=== PATIENT | female | born 1955 | race Caucasian/White ===

== ENCOUNTER 2023-10-01 17:59 | Inpatient (IN) | payer MEDICARE ==
[~2023-10-01] VITALS: Ht 157.5 cm; Wt 64.9 kg
[2023-10-01] MEDS: SODIUM CHLORIDE 0.9% 1,000 ML IV ONE (18:34)
[2023-10-01 18:53] LABS: BASOPHILS % 0.5 % (0.0-2.0); EOSINOPHILS % 0.1 % (0.0-5.0); HEMATOCRIT. 42.5 % (36.0-48.0); HEMOGLOBIN. 14.4 g/dL (12.0-16.0); LYMPHOCYTES % 11.2 % (20.0-50.0); MEAN CORPUSCULAR HEMOGLOBIN 30.3 pg (28.0-32.0); MEAN CORPUSCULAR HGB CONC 33.8 g/dL (31.0-37.0); MEAN CORPUSCULAR VOLUME 89.6 fL (81.0-99.0); MEAN PLATELET VOLUME 10.8 fl (7.4-10.4); MONOCYTES % 6.3 % (2.0-8.0); NEUTROPHILS % 81.9 % (40.0-76.0); PLATELET 197 x1000/uL (130-400); RED BLOOD CELL COUNT 4.74 mill/uL (4.2-5.4); RED CELL DISTRIBUTION WIDTH 14.1 % (11.6-14.6); WHITE BLOOD COUNT 10.2 x1000/uL (4.5-11.0)
[2023-10-01 19:05] LABS: PARTIAL THROMBOPLASTIN TIME 25.8 sec (23.4-31.0); PROTHROMBIN TIME 11.1 sec (9.6-11.0)
[2023-10-01 19:12] LABS: ALANINE AMINOTRANSFERASE 13 IU/L (10-49); ALBUMIN 4.9 g/dL (3.2-4.8); ASPARTATE AMINOTRANSFERASE 25 IU/L (<34); BILIRUBIN TOTAL 0.9 mg/dL (0.1-1.0); CALCIUM 9.2 mg/dL (8.7-10.4); CARBON DIOXIDE 26 mEq/L (21-32); CHLORIDE 105 mEq/L (98-107); CREATININE 0.5 mg/dL (0.6-1.0); GLUCOSE 111 mg/dL (70-105); POTASSIUM 3.9 mEq/L (3.5-5.1); PROTEIN TOTAL 7.7 g/dL (6.0-8.3); SODIUM 136 mEq/L (136-145); UREA NITROGEN BLOOD 8 mg/dL (9-23)
[2023-10-01 19:13] LABS: TROPONIN I HIGH SENSITIVITY 61 ng/L (3.0-34)
[2023-10-01] MEDS ORDERED: FUROSEMIDE 40MG/4ML VIAL IVP ONE (19:30)
[2023-10-01 20:03] LABS: CLARITY URINE CLEAR (CLEAR); COLOR URINE YELLOW (YELLOW); GLUCOSE URINE NEGATIVE (NEGATIVE); KETONES URINE NEGATIVE (NEGATIVE); LEUKOCYTE ESTERASE URINE NEGATIVE (NEGATIVE); NITRITE URINE NEGATIVE (NEGATIVE); OCCULT BLOOD URINE NEGATIVE (NEGATIVE); PH URINE 7.5 (4.5-8.0); PROTEIN URINE NEGATIVE (NEGATIVE); SPECIFIC GRAVITY URINE 1.002 (1.005-1.030); UROBILINOGEN URINE 0.2 E.U./dL (0.2-1.0)
[2023-10-01] MEDS ORDERED: GUAIFENESIN 200MG/10ML SUGAR FREE UDC PO PRN (21:15)
[2023-10-01] MEDS ORDERED: ONDANSETRON HCL 4MG/2ML INJ IV PRN (21:15)
[2023-10-01] MEDS ORDERED: DOCUSATE SODIUM 100MG CAPSULE PO PRN (21:15)
[2023-10-01] MEDS: ASPIRIN 325MG EC TABLET PO ONE (21:45)
[2023-10-01] MEDS: FUROSEMIDE 40MG/4ML VIAL IVP NR (22:44)
[2023-10-01] MEDS: MVI, ADULT NO.1 10 ML, FOLIC ACID 1 MG, THIAMINE HCL 100 MG in SODIUM CHLORIDE 0.9% 1,0... IV NR (22:59)
[2023-10-01] MEDS: ACETAMINOPHEN 325MG TABLET PO PRN (23:01)
[2023-10-02 03:35] VITALS: BP 132/60; PULSE 59; RESP 18; TEMP 98.2
[2023-10-02 04:00] VITALS: BP 130/47; PULSE 59; RESP 17; TEMP 98.8
[2023-10-02 08:00] VITALS: BP 127/49; PULSE 57; RESP 18; TEMP 97.9
[2023-10-02] MEDS: ENOXAPARIN 40MG/0.4ML SYR SUBCUT SCH (08:22)
[2023-10-02] MEDS ORDERED: NITROGLYCERIN 0.4MG TABLET SL SL PRN (08:30)
[2023-10-02] MEDS ORDERED: ZOLPIDEM TARTRATE 5MG TABLET PO PRN (08:30)
[2023-10-02] MEDS ORDERED: KETOROLAC 15MG/ML VIAL IV PRN (08:45)
[2023-10-02] MEDS: ASPIRIN 325MG EC TABLET PO SCH (08:53)
[2023-10-02] MEDS: FAMOTIDINE 20MG TABLET PO SCH (08:53)
[2023-10-02 09:36] LABS: BASOPHILS % 0.9 % (0.0-2.0); EOSINOPHILS % 0.9 % (0.0-5.0); HEMATOCRIT. 40.2 % (36.0-48.0); HEMOGLOBIN. 13.4 g/dL (12.0-16.0); LYMPHOCYTES % 23.9 % (20.0-50.0); MEAN CORPUSCULAR HEMOGLOBIN 30.1 pg (28.0-32.0); MEAN CORPUSCULAR HGB CONC 33.3 g/dL (31.0-37.0); MEAN CORPUSCULAR VOLUME 90.3 fL (81.0-99.0); MEAN PLATELET VOLUME 11.4 fl (7.4-10.4); MONOCYTES % 10.6 % (2.0-8.0); NEUTROPHILS % 63.7 % (40.0-76.0); PLATELET 191 x1000/uL (130-400); RED BLOOD CELL COUNT 4.46 mill/uL (4.2-5.4); RED CELL DISTRIBUTION WIDTH 14.1 % (11.6-14.6); WHITE BLOOD COUNT 7.7 x1000/uL (4.5-11.0)
[2023-10-02 09:59] LABS: ALANINE AMINOTRANSFERASE 10 IU/L (10-49); ALBUMIN 4.2 g/dL (3.2-4.8); ASPARTATE AMINOTRANSFERASE 19 IU/L (<34); CALCIUM 8.7 mg/dL (8.7-10.4); CARBON DIOXIDE 27 mEq/L (21-32); CHLORIDE 105 mEq/L (98-107); CHOLESTEROL 154 mg/dL (<200); CREATININE 0.6 mg/dL (0.6-1.0); GLUCOSE 91 mg/dL (70-105); HDL CHOLESTEROL 50 mg/dL (>65); IRON 88 ug/dL (50-170); LDL CHOLESTEROL 100 mg/dL (5-100); POTASSIUM 3.4 mEq/L (3.5-5.1); PROTEIN TOTAL 6.8 g/dL (6.0-8.3); SODIUM 139 mEq/L (136-145); THYROID STIMULATING HORMONE 2.06 uIU/mL (0.55-4.78); TOTAL IRON BINDING CAPACITY 248 ug/dl (250-425); TRIGLYCERIDE 91 mg/dL (0-150); UREA NITROGEN BLOOD 8 mg/dL (9-23)
[2023-10-02 11:48] VITALS: BP 145/60; PULSE 59; RESP 18; TEMP 97.9
[2023-10-02 11:58] LABS: FOLIC ACID (FOLATE) SERUM > 20.00 ng/mL (>5.38); VITAMIN B12 SERUM 267 pg/mL (211-911)
[2023-10-02] MEDS: POTASSIUM CHLORIDE 20MEQ TABLET SR PO NR (15:13)
[2023-10-02 16:00] VITALS: BP 152/55; PULSE 62; RESP 18; TEMP 97.3
[2023-10-02 20:49] VITALS: BP 145/58; PULSE 63; RESP 18; TEMP 97.7
[2023-10-02] MEDS: ATORVASTATIN CALCIUM 40MG TABLET PO SCH (22:31)
[2023-10-03 00:49] VITALS: BP 140/55; PULSE 56; RESP 16; TEMP 97.6
[2023-10-03 04:40] VITALS: BP 139/51; PULSE 54; TEMP 97.2
[2023-10-03 07:06] LABS: BASOPHILS % 1.3 % (0.0-2.0); DIFFERENTIAL COMMENT 0; EOSINOPHILS % 1.5 % (0.0-5.0); HEMATOCRIT. 43.8 % (36.0-48.0); HEMOGLOBIN. 14.8 g/dL (12.0-16.0); LYMPHOCYTES % 31.9 % (20.0-50.0); MEAN CORPUSCULAR HEMOGLOBIN 30.4 pg (28.0-32.0); MEAN CORPUSCULAR HGB CONC 33.7 g/dL (31.0-37.0); MEAN CORPUSCULAR VOLUME 90.3 fL (81.0-99.0); MEAN PLATELET VOLUME 10.9 fl (7.4-10.4); MONOCYTES % 9.3 % (2.0-8.0); PLATELET 195 x1000/uL (130-400); RED BLOOD CELL COUNT 4.86 mill/uL (4.2-5.4); RED CELL DISTRIBUTION WIDTH 14.3 % (11.6-14.6); WHITE BLOOD COUNT 7.7 x1000/uL (4.5-11.0)
[2023-10-03 08:00] VITALS: BP 144/51; PULSE 58; RESP 18; TEMP 97.2
[2023-10-03 08:24] LABS: CALCIUM 8.7 mg/dL (8.7-10.4); CARBON DIOXIDE 26 mEq/L (21-32); CHLORIDE 105 mEq/L (98-107); CREATININE 0.6 mg/dL (0.6-1.0); GLUCOSE 100 mg/dL (70-105); PHOSPHORUS 3.5 mg/dL (2.5-4.9); POTASSIUM 3.8 mEq/L (3.5-5.1); SODIUM 140 mEq/L (136-145); UREA NITROGEN BLOOD 11 mg/dL (9-23)
[2023-10-03] MEDS: ASPIRIN 81MG TABLET PO SCH (09:00)
[2023-10-03] MEDS: CLOPIDOGREL 75MG TABLET PO SCH (09:03)
[2023-10-03] MEDS: CLONIDINE 0.1MG TABLET PO PRN (11:37)
[2023-10-03 11:47] VITALS: BP 170/74; PULSE 89; RESP 18; TEMP 98.2
[2023-10-03] MEDS: CYANOCOBALAMIN 1000MCG/ML VIAL IM SCH (14:12)
[2023-10-03 16:00] VITALS: BP 135/52; PULSE 59; RESP 18; TEMP 97.5
[2023-10-03 20:25] VITALS: BP 127/54; PULSE 56; RESP 18; TEMP 96.5
[2023-10-04 00:31] VITALS: BP 135/50; PULSE 58; RESP 16; TEMP 97
[2023-10-04 04:36] VITALS: BP 147/51; PULSE 55; RESP 18; TEMP 96.4
[2023-10-04 08:00] VITALS: BP 149/57; PULSE 57; RESP 18; TEMP 96.6
[2023-10-04 12:00] VITALS: BP 161/77; PULSE 76; RESP 18; TEMP 96.5
[2023-10-04] MEDS ORDERED: LIP40 PO (12:33)
[2023-10-04] MEDS ORDERED: CLOP-31 PO (12:33)
[2023-10-04] MEDS ORDERED: FAMO20TA8 PO (12:33)
[2023-10-04] MEDS ORDERED: ASPI-1160 PO (12:33)
[2023-10-04 14:30] VITALS: BP 150/75; PULSE 76; TEMP 96.7; O2SAT 97
== END 2023-10-04 15:55 | disposition home or self-care (01) | DRG 64 ==
LOC: EDBD 17:59 → ER 17:59 → 8WST 20:11 → EDBEDREQ 20:14 → EDBEDREQTM 20:14
PROVIDERS: ADMIT Internal Medicine; ATTEND Internal Medicine
DX: I63.512 Cerebral infarction due to unspecified occlusion or stenosis of left middle cerebral artery (principal); G92.8 Other toxic encephalopathy; K21.9 Gastro-esophageal reflux disease without esophagitis; I11.0 Hypertensive heart disease with heart failure; I50.9 Heart failure, unspecified; M17.12 Unilateral primary osteoarthritis, left knee; R47.1 Dysarthria and anarthria; R26.9 Unspecified abnormalities of gait and mobility; M19.042 Primary osteoarthritis, left hand; Z60.2 Problems related to living alone; Z79.02 Long term (current) use of antithrombotics/antiplatelets; Z82.3 Family history of stroke; E87.6 Hypokalemia; R29.701 NIHSS score 1
CPT/HCPCS: 36415; 70551; 71045; 80048; 80053; 80061; 81003; 82607; 82746; 82962; 83036; 83540; 83550; 83735; 83880; 84100; 84439; 84443; 84484; 85025; 93005; 93306; 93880; 93970; 97161; 97166; 99285; J1650; J1940; J3411; J3420; J3490; J7030